=== PATIENT | male | born 2000 ===

== ENCOUNTER 2022-11-15 08:05 | Day surgery (SDC) | payer OTHER, SELFPAY ==
[2022-11-15 08:44] VITALS: BP 137/82; PULSE 78; RESP 18; TEMP 36.7; O2SAT 100
[2022-11-15] MEDS: LACTATED RINGERS 1,000 ML 84 ML IV (09:03)
--- NOTE | 2022-11-15 10:17 | PM.PREOP ---
Pre-operative Note Interval Note History & Physical reviewed/Exam performed by Physician: Yes Changes to H&P: No
--- NOTE | 2022-11-15 10:18 | P.OP_ITS ---
Operative Date/Time/Diagnoses Date of procedure: 11/15/22 Time of procedure: 10:18 Pre-op diagnosis: Right fifth hammertoe, corn, pain Post-op diagnosis: same Procedure & Clinicians Procedure: Right fifth toe derotational arthroplasty Same procedure as scheduled: Yes Indications: 22-year-old male with painful hammertoe to the right 5th toe. Conservative measures have failed to alleviate his pain and he wished to have surgical intervention at this time. We spoke with the risks, potential complications as well as expected outcomes. Consent was signed there are no contraindications to the procedure at this time. Surgeon: Sumaya Smith Click Yes if Unassisted: Yes Anesthesia Type: General Operative Notes Closure Type: primary Specimen(s): none sent Estimated Blood Loss (mL): 5 Blood products transfused: none Tourniquet time (min): 16 Procedure in detail: The patient was brought to the operating room and placed on the operating table in the supine position. The tourniquet was placed about the right ankle, well padded, appropriately aligned. After induction of general anesthesia the right foot and ankle were prepped and draped in the usual aseptic manner. The tourniquet was inflated. Two converging semi-elliptical incisions were made over the 5th proximal in terphalangeal joint dorsally, containing the enlarged hyperkeratotic lesion. The incision was deepened through subcutaneous tissues being careful to identify and retract all vital neural and vascular structures. All bleeders were cauterized and ligated as necessary. A transection of the extensor tendon at the proximal interphalangeal joint was performed. A saw was used to resect the head of the proximal phalanx. A rongeur was used to further reduce a little prominence of the intermediate phalanx medially. A manual rasp smoothed sharp corner of distal proximal phalanx. Area was irrigated with copious amounts normal sterile saline. Tourniquet was deflated, a prompt hyperemic response was seen to the foot. Additional skin and redundant tissue was carefully removed to allow for closure and derotatonal alignment. Deep tissue was repaired using 4-0 Vicryl. Nylon was used to close the skin. A lightly compressive dressing was placed on the foot and he was transferred to the PACU with vital signs stable. Complications: none Post-operative Condition: stable Disposition: PACU Plan for aftercare: Following a period of postoperative monitoring, the patient will be discharged to home on written and oral postoperative instructions including keeping the dressing dry and intact, no greater than 50% weight the surgical foot using his crutches and postoperative shoe. Icing and elevating the foot when seated home. DVT prevention techniques have been reviewed. He did not bring his boot to the surgery today but it is in the car and so he is going to get that on as soon as he gets in the car. He also has ordered his crutches but they will not come until this evening but understands how to ambulate into his home carefully as instructed.
[2022-11-15] MEDS: CEFAZOLIN 2 GM/100 ML PREMIX 100 ML IV (10:27)
--- NOTE | 2022-11-15 10:47 | SUR.OPER ---
Supine on padded OR bed, head on pillow, arms secured on padded arm boards at <90 degrees abduction, legs uncrossed, safety belt at thigh, tape over blanket over lower LEFT LEG. GEL BUMP UNDER RIGHT HIP
[2022-11-15] MEDS: BUPIVACAINE 0.5% (PF) 10 ML VIAL 3 ML INJ (10:54)
[2022-11-15 11:34] VITALS: BP 116/66; PULSE 63; RESP 19; O2SAT 98
[2022-11-15 11:39] VITALS: BP 135/89; PULSE 79; RESP 15; O2SAT 99
[2022-11-15 11:44] VITALS: BP 127/88; PULSE 65; RESP 15; O2SAT 100
[2022-11-15 11:50] VITALS: BP 117/86; PULSE 69; RESP 16; O2SAT 99
[2022-11-15 11:54] VITALS: BP 128/88; PULSE 60; RESP 19; TEMP 36.4; O2SAT 99
== END 2022-11-15 12:15 | disposition home or self-care (01) ==
PROVIDERS: PCP Nurse Practitioner Family; Referring Provider Podiatrist; Visit Provider Podiatrist
PROC: (CPT 26535; principal; 2022-11-15 10:30)
DX: M20.41 Other hammer toe(s) (acquired), right foot (principal); L84 Corns and callosities; M79.674 Pain in right toe(s)
CPT/HCPCS: 28285; J0690; J1100; J1885; J2250; J2405; J2704; J3010